=== PATIENT | male | born 1950 | race Two or more races ===

== ENCOUNTER 2017-10-13 21:57 | Emergency (ER) | payer OTHER ==
[~2017-10-13] VITALS: Ht 180.3 cm; Wt 90.7 kg
[2017-10-13 22:35] LABS: Basophils # (auto) 0.1 uL; Eosinophils # (auto) 0.3 uL; Eosinophils % (auto) 3.1 % (0.0-7.0); Hematocrit 42.1 % (41.0-53.0); Hemoglobin 14.5 g/dL (13.5-17.5); Lymphocytes # (auto) 2.2 uL; Lymphocytes % (auto) 27.8 % (10.0-50.0); Mean Corpuscular Hemoglobin 32.4 pg (28.0-32.0); Mean Corpuscular Hgb Conc. 34.6 g/dL (32.0-36.0); Mean Corpuscular Volume 93.7 fL (80.0-100.0); Mean Platelet Volume 10.8 fL (6.9-10.8); Monocytes # (auto) 0.8 uL; Monocytes % (auto) 9.5 % (0.0-12.0); Neutrophils # (auto) 4.7 uL; Neutrophils % (auto) 58.6 % (37.0-80.0); Platelet Count (auto) 105 10^3/uL (140-450); Red Cell Distribution Width 13.6 % (11.8-14.3)
[2017-10-13 22:56] LABS: Albumin 3.7 g/dL (3.4-5.0); Calcium 8.4 mg/dL (8.5-10.1); Potassium 3.6 mmol/L (3.5-5.1)
[2017-10-13 22:59] LABS: Bilirubin, Total 0.5 mg/dL (0.2-1.0); Total Protein 7.8 g/dL (6.4-8.2)
[2017-10-13 23:01] LABS: INR 1.05 (0.9-1.15); Partial Thromboplastin Time 26.4 sec (22.64-33.71); Prothrombin Time 11.4 sec (9.37-12.3)
[2017-10-14] MEDS ORDERED: ACYCLOVIR 400 MG TAB PO ONE
[2017-10-14] MEDS ORDERED: predniSONE 20 MG TAB PO ONE ×2
[2017-10-14 00:56] LABS: Urine RBC None Seen /hpf (0 - 3)
[2017-10-14 01:01] LABS: Urine Bilirubin Negative (Negative); Urine Blood Negative /uL (Negative); Urine Color Yellow (Yellow); Urine Glucose 1+ mg/dL (Normal); Urine Ketone Negative (Negative); Urine Nitrite Negative (Negative); Urine Squamous Epithelial Cell FEW /hpf (<5); Urine Urobilinogen Normal (Negative)
[2017-10-14 02:36] VITALS: BP 141/81
== END 2017-10-14 02:54 | disposition short-term general hospital (02) ==
LOC: ER 21:57
DX: G51.0 Bell's palsy (principal); I10 Essential (primary) hypertension
CPT/HCPCS: 36415; 70450; 80053; 81001; 82962; 85025; 85610; 85730; 99285; J7512